=== PATIENT | female | born 1985 | race Caucasian/White ===

== ENCOUNTER 2017-10-19 07:37 | Day surgery (SDC) | payer OTHER ==
[~2017-10-19 07:37] MED LIST: BALANCED SALT SOLN 15 ML OPH IRRIG; LIDOCAINE 2% (SDV) 5 ML INJ
[2017-10-19] MEDS ORDERED: METHYLENE BLUE 1% 10 ML INJ (08:54)
[2017-10-19] MEDS ORDERED: PROPOFOL 20 ML (09:07)
[2017-10-19] MEDS: TOBRAMYCIN/DEXAMETH 3.5 GM OPH OINT (09:27)
[2017-10-19] MEDS: MITOMYCIN 5 MG INJ OP (09:27)
[2017-10-19] MEDS: PHENYLephrine 10% 5 ML OPH (09:27)
[2017-10-19] MEDS: TETRACAINE 0.5% 4 ML OPH (09:27)
[2017-10-19] MEDS: LIDOCAINE 1%/EPI 30 ML INJ INJ (09:27)
[2017-10-19] MEDS ORDERED: MIDAZOLAM 1 MG/ML 2 ML INJ (09:30)
[2017-10-19] MEDS ORDERED: FENTAnyl 50 MCG/ML VIAL ×2 (09:41→09:54)
[2017-10-19] MEDS: HYDROCODONE/APAP (5/325) TAB PO (11:21)
== END 2017-10-19 12:10 | disposition home or self-care (01) ==
LOC: SDS 07:37
DX: H11.002 Unspecified pterygium of left eye (principal)
CPT/HCPCS: 65420